=== PATIENT | female | born 1930 | race Caucasian/White ===

== ENCOUNTER 2018-06-26 18:13 | Inpatient (IN) | payer BC, MEDICARE ==
[~2018-06-26] VITALS: Ht 157.5 cm; Wt 59.9 kg
[~2018-06-26 18:13] MED LIST: ASPI-612 PO; ATEN25TA PO; CHOL10002 PO; COLC0.6T67 PO; ESTR10TA VG; LOSA1TAB36 PO; MIRA50TA PO; PITA1TAB PO
--- NOTE | 2018-06-26 18:29 | NUR ---
Unable to reconcile home medications as the pt is unable to provide any information about current meds at this time, per EMS pt's daughter is on her way to the ER with further information.
--- NOTE | 2018-06-26 18:40 | NUR ---
RECEIVED PT FROM HOME VIA AMBULANCE, PT DOESNT REMEMBER WHAT HAPPENED, INTIAL DGX SYNCOPE. PT UPON ARRIVAL CONNECTED TO VOLLEYBALL REFEREE, V/S TAKEN, 12 LEAD EKG DONE, IV LINE G20 INSERTED ON LT AC, CXRAY DONE, BLOOD SAMPLES TAKEN, URINE SAMPLE TAKEN. PT TAKEN TO CT SCAN.
[2018-06-26] MEDS ORDERED: ONDANSETRON 4 MG/2 ML VIAL IV ONE (18:45)
[2018-06-26] MEDS ORDERED: IV NORMAL SALINE 1000 ML BAG IV ONE (18:45)
[2018-06-26 19:05] LABS: BASOPHILS % (AUTO) 0.5 % (0.0-2.0); EOSINOPHILS # (AUTO) 0.1 K/uL (0.0-0.7); EOSINOPHILS % (AUTO) 1.1 % (0.0-7.0); HEMATOCRIT 41.8 % (31.2-41.9); HEMOGLOBIN 14.1 g/dL (10.9-14.3); LYMPHOCYTES # (AUTO) 0.8 K/uL (20.0-40.0); LYMPHOCYTES % (AUTO) 8.9 % (20.5-51.5); MEAN CORPUSCULAR HEMOGLOBIN 29.2 uug (24.7-32.8); MEAN CORPUSCULAR HGB CONC 34 g/dL (32.3-35.6); MEAN CORPUSCULAR VOLUME 86.6 fL (75.5-95.3); MONOCYTES # (AUTO) 0.4 K/uL (2.0-10.0); MONOCYTES % (AUTO) 4.7 % (0.0-11.0); NEUTROPHILS # (AUTO) 7.2 K/uL (1.8-8.9); NEUTROPHILS % (AUTO) 84.8 % (38.5-71.5); PLATELET COUNT (AUTO) 214 K/uL (179-408); RED BLOOD CELL COUNT(AUTO) 4.82 MIL/uL (3.63-4.92); WHITE BLOOD COUNT (AUTO) 8.4 K/uL (3.8-11.8)
[2018-06-26] MEDS ORDERED: ONDANSETRON 4 MG/2 ML VIAL ONE (19:05)
[2018-06-26 19:07] LABS: *BILIRUBIN,URIN NEGATIVE (NEGATIVE); *BLOOD, URINE NEGATIVE (NEGATIVE); *CLARITY,URINE CLEAR (CLEAR); *COLOR,URINE YELLOW (YELLOW); *KETONES,URINE NEGATIVE (NEGATIVE); *PROTEIN,URINE NEGATIVE (NEGATIVE); *UROBILINOGEN,URINE 0.2 E.U./dl (NORMAL); LEUKOCYTE ESTERASE ,URINE NEGATIVE (NEGATIVE); NITRITE, URINE NEGATIVE (NEGATIVE); PH,URINE 7.5 (5.0-8.0); UGLUCOSE NEGATIVE (NEGATIVE)
[2018-06-26 19:09] LABS: CARBON DIOXIDE 29 mmol/L (21-32); CHLORIDE 102 mmol/L (98-107); CREATININE 1.1 mg/dL (0.6-1.3); GLUCOSE 113 mg/dL (74-106); POTASSIUM 4.1 mmol/L (3.5-5.1); UREA NITROGEN, BLOOD 22 mg/dL (7-18)
[2018-06-26 19:12] LABS: SQUAMOUS EPITHELIAL CELL,UR FEW /HPF (NONE SEEN); WBC,URINE 0-3 /HPF (0-3)
[2018-06-26 19:14] LABS: ALANINE AMINOTRANSFERASE 30 U/L (14-59); ALKALINE PHOSPHATASE 61 U/L (50-136); ASPARTATE AMINOTRANSFERASE 20 U/L (15-37); BILIRUBIN,DIRECT 0.1 mg/dL (0.0-0.2); BILIRUBIN,TOTAL 0.6 mg/dL (0.2-1.0); TOTAL PROTEIN, SERUM 7.4 g/dL (6.4-8.2)
--- NOTE | 2018-06-26 19:15 | NUR ---
FULL REPORT GIVEN TO STEEL ERECTOR RN,RODOLFO
--- NOTE | 2018-06-26 19:22 | NUR ---
Pt. admitted to telemetry , under care of Joshua Raines NP. Belongs List completed
--- NOTE | 2018-06-26 19:25 | NUR ---
Admission Dx: NSTEMI/Syncope.
[2018-06-26] MEDS ORDERED: NITROGLYCERIN OINT 1 GM PACKET TP ONE ×2 (19:30→19:33)
[2018-06-26] MEDS ORDERED: ASPIRIN 81 MG TAB.CHEW PO ONE (19:30)
[2018-06-26] MEDS ORDERED: ASPIRIN 81 MG TAB.CHEW ONE (19:33)
--- NOTE | 2018-06-26 19:42 | NUR ---
Report given to Natty REYNA on Telemetry.
[2018-06-26] MEDS ORDERED: ACETAMINOPHEN 325 MG TABLET PO PRN (19:45)
[2018-06-26] MEDS ORDERED: MAGNESIUM HYDROXIDE 30 ML LIQUID UDC PO PRN (19:45)
[2018-06-26] MEDS ORDERED: Z GUARD REMEDY PASTE 57 GM TUBE TOP PRN (19:45)
[2018-06-26] MEDS ORDERED: TEMAZEPAM 15 MG CAPSULE PO PRN (19:45)
[2018-06-26] MEDS ORDERED: HYDROCODONE/APAP 5-325MG TABLET PO PRN (19:45)
[2018-06-26] MEDS ORDERED: ONDANSETRON 4 MG/2 ML VIAL IV PRN (19:45)
[2018-06-26] MEDS ORDERED: ENOXAPARIN SODIUM 40 MG/0.4 ML DISP.SYRIN SQ SCH (19:45)
[2018-06-26] MEDS ORDERED: LOSA25TA13 PO (19:45)
[2018-06-26] MEDS ORDERED: MORPHINE SULFATE 2 MG/1 ML DISP.SYRIN IV PRN (19:45)
--- NOTE | 2018-06-26 19:55 | NUR ---
Received pt in tele unit via darshan under care of BILLY Doran. Daughter, grandson and roommate at bedside. Pt AxO x 4. Tele monitor placed, noted to be SR with HR 76. BP 145/65. O2 sat 97% room air. Pt has no complaints of pain, dizziness or SOB at this time. Pertinent assessments and unit orientation done. Allergies noted. Discussed care plan with patient. Daughter states she will provide advance directive documents of patient to day shift. Safety precautions implemented. Bed alarm on and in locked position. Call light within reach. Will continue to monitor and carry out all orders.
[2018-06-26] MEDS ORDERED: NITROGLYCERIN 0.4 MG/TAB BOTTLE SL PRN (20:00)
[2018-06-26] MEDS: ATENOLOL 25 MG TABLET PO SCH (20:56)
[2018-06-26 20:59] VITALS: BP 155/80
[2018-06-26] MEDS ORDERED: ATORVASTATIN 10 MG TABLET PO SCH (21:00)
[2018-06-26] MEDS ORDERED: Medication Not On Formulary EA (Pitavastatin Calcium (Livalo) 1 MG) PO SCH (21:00)
[2018-06-26] MEDS ORDERED: ENOXAPARIN SODIUM 30 MG/0.3 ML DISP.SYRIN SUBCUT SCH (21:00)
[2018-06-26] MEDS: IV NS 1000 ML 1,000 ML IV PRN (21:00)
[2018-06-27 00:35] VITALS: BP 136/47
--- NOTE | 2018-06-27 00:53 | NUR ---
Critical lab value TROPONIN: 0.573. DR BURNETT made aware, no new orders. Will continue to monitor closely. Addendum: 06/27/18 at 0054 by MIA GO RN Amended: Links added.
[2018-06-27 06:18] VITALS: BP 116/43
--- NOTE | 2018-06-27 06:25 | NUR ---
Pt slept well during the night. Arousable with sound and touch during initial rounding. CPAP used for sleep apnea. Pt denies any pain, SOB or severe headache at this time. Carried out all orders. Will endorse continuity of care to day shift nurse.
[2018-06-27 06:40] LABS: BASOPHILS # (AUTO) 0.1 K/uL (0.0-8.0); BASOPHILS % (AUTO) 1.1 % (0.0-2.0); EOSINOPHILS # (AUTO) 0.1 K/uL (0.0-0.7); EOSINOPHILS % (AUTO) 2.4 % (0.0-7.0); HEMATOCRIT 34.1 % (31.2-41.9); HEMOGLOBIN 11.6 g/dL (10.9-14.3); LYMPHOCYTES % (AUTO) 17.8 % (20.5-51.5); MEAN CORPUSCULAR HEMOGLOBIN 29.6 uug (24.7-32.8); MEAN CORPUSCULAR HGB CONC 34 g/dL (32.3-35.6); MEAN CORPUSCULAR VOLUME 87.2 fL (75.5-95.3); MONOCYTES # (AUTO) 0.5 K/uL (2.0-10.0); MONOCYTES % (AUTO) 8.9 % (0.0-11.0); NEUTROPHILS # (AUTO) 3.8 K/uL (1.8-8.9); NEUTROPHILS % (AUTO) 69.8 % (38.5-71.5); PLATELET COUNT (AUTO) 190 K/uL (179-408); RED BLOOD CELL COUNT(AUTO) 3.91 MIL/uL (3.63-4.92); WHITE BLOOD COUNT (AUTO) 5.4 K/uL (3.8-11.8)
[2018-06-27 07:02] LABS: ALANINE AMINOTRANSFERASE 24 U/L (14-59); ALKALINE PHOSPHATASE 42 U/L (50-136); ASPARTATE AMINOTRANSFERASE 21 U/L (15-37); BILIRUBIN,TOTAL 0.7 mg/dL (0.2-1.0); CARBON DIOXIDE 28 mmol/L (21-32); CHLORIDE 107 mmol/L (98-107); CHOLESTEROL 143 mg/dL (<200); CREATININE 0.8 mg/dL (0.6-1.3); GLUCOSE 96 mg/dL (74-106); HDL CHOLESTEROL 48 mg/dL (40-60); MAGNESIUM 1.6 mg/dL (1.8-2.4); PHOSPHOROUS 3.4 mg/dL (2.5-4.9); POTASSIUM 3.6 mmol/L (3.5-5.1); TOTAL PROTEIN, SERUM 5.4 g/dL (6.4-8.2); TRIGLYCERIDES 104 MG/DL (30-150); UREA NITROGEN, BLOOD 22 mg/dL (7-18)
[2018-06-27] MEDS ORDERED: MAGNESIUM SULFATE 2 GM in IV DEXTROSE 5% 100 ML IV ONE (07:45)
--- NOTE | 2018-06-27 08:00 | NUR ---
AWAKE ALERT COOPERATE WELL UP IN CHAIR THIS AM NO DIZZINESS OR SOB OR PAIN CONTINUE IVF ON FALL PRECAUTION BED ALARM ON AND CALL LIGHT IN REACH
[2018-06-27] MEDS: ASPIRIN EC 81 MG TABLET.DR PO SCH (08:25)
[2018-06-27] MEDS: IV NS 1000 ML 1,000 ML IV PRN (08:25)
[2018-06-27] MEDS: CHOLECALCIFEROL 1,000 UNIT TABLET PO SCH (08:26)
[2018-06-27] MEDS: PANTOPRAZOLE SODIUM 40 MG VIAL IV SCH (08:27)
[2018-06-27] MEDS: MAGNESIUM SULFATE/D5W 100 ML IV SCH ×2 (08:36→10:02)
[2018-06-27] MEDS ORDERED: LOSARTAN POTASSIUM 25 MG TABLET PO SCH ×2 (09:00)
--- NOTE | 2018-06-27 09:00 | NUR ---
DR PECK SEE PATIENT AND LAB RESULT AND NEW ORDER IN CHART
[2018-06-27] MEDS ORDERED: LOSARTAN POTASSIUM 25 MG TABLET PO ONE (09:30)
[2018-06-27 09:48] LABS: IRON, SERUM 74 ug/dL (50-175)
--- NOTE | 2018-06-27 10:00 | NUR ---
DR PECK WAS INFORM OF TROP LAB RESULT NO NEW ORDER
[2018-06-27 10:01] LABS: FERRITIN 78 ng/mL (8-252)
[2018-06-27] MEDS: AMLODIPINE 5 MG TABLET PO SCH (10:03)
[2018-06-27 11:24] VITALS: BP 103/34
--- NOTE | 2018-06-27 12:00 | NUR ---
OOB UP IN CHAIR AND EAT LUNCH WELL FAMILY AT BEDSIDE
[2018-06-27 14:00] VITALS: BP_SYST 85; BP_SYST 92; BP_SYST 97; BP_DIAS 30; BP_DIAS 31; BP_DIAS 32
--- NOTE | 2018-06-27 14:00 | NUR ---
ORTHO STATIC BP CHECK ORDER AND RECORD PHYSICAL THERAPY SEEN PATIENT TODAY BUT BP STILL LOW AND PATIENT REFUSED TO EX /AMB AT THIS TIME
[2018-06-27 16:01] VITALS: BP 114/32
--- NOTE | 2018-06-27 17:30 | NUR ---
STABLE HEMODYNAMIC STATUS ,NO ACUTE DISTRESS NO DIZZINESS OR PAIN CONTINUE IVF AND SAFETY MEASURE PROVIDED CALL LIGHT IN REACH
--- NOTE | 2018-06-27 19:52 | NUR ---
Received pt sitting comfortably in chair. Daughter at bedside. Pt alert and oriented x4. Discussed and reviewed plan of care. Pt concerns of blood pressure noted. Pt has no complaints of dizziness, SOB or pain at this time. CPAP machine from home at bedside. Safety precautions implemented, non-skid socks on, call light within reach. Will continue to monitor closely and carry out all orders.
--- NOTE | 2018-06-27 19:53 | NUR ---
PT WAS COMPLAINING AND WAS REQUESTING TO USE HER PERSONAL CPAP MACHINE. RN PROCEDURE WAS CALLED AND APPROVED IT WAS OK FOR HOSPITAL USE. CHARGE NURSE AWARE AND CALLED FOR AN ORDER TO USE HER OWN CPAP.
[2018-06-27 20:00] VITALS: BP 124/43
[2018-06-27] MEDS: ATENOLOL 25 MG TABLET PO SCH (20:41)
[2018-06-27] MEDS ORDERED: LIVALO 1 MG PO SCH (21:00)
[2018-06-27] MEDS ORDERED: ENOXAPARIN SODIUM 40 MG/0.4 ML DISP.SYRIN SQ SCH (21:00)
[2018-06-28 00:28] VITALS: BP 130/46
--- NOTE | 2018-06-28 00:59 | NUR ---
PT SLEEPING USING HER PERSONAL CPAP MACHINE. NO SOB NOTED.
[2018-06-28 04:41] VITALS: BP 111/45
[2018-06-28 06:07] LABS: BASOPHILS # (AUTO) 0.1 K/uL (0.0-8.0); EOSINOPHILS # (AUTO) 0.3 K/uL (0.0-0.7); EOSINOPHILS % (AUTO) 5.6 % (0.0-7.0); HEMATOCRIT 33.6 % (31.2-41.9); HEMOGLOBIN 11.4 g/dL (10.9-14.3); LYMPHOCYTES # (AUTO) 1.2 K/uL (20.0-40.0); LYMPHOCYTES % (AUTO) 23.4 % (20.5-51.5); MEAN CORPUSCULAR HEMOGLOBIN 29.8 uug (24.7-32.8); MEAN CORPUSCULAR HGB CONC 34 g/dL (32.3-35.6); MEAN CORPUSCULAR VOLUME 87.7 fL (75.5-95.3); MONOCYTES # (AUTO) 0.5 K/uL (2.0-10.0); MONOCYTES % (AUTO) 9.6 % (0.0-11.0); NEUTROPHILS # (AUTO) 3.1 K/uL (1.8-8.9); NEUTROPHILS % (AUTO) 60.4 % (38.5-71.5); PLATELET COUNT (AUTO) 174 K/uL (179-408); RED BLOOD CELL COUNT(AUTO) 3.83 MIL/uL (3.63-4.92); WHITE BLOOD COUNT (AUTO) 5.1 K/uL (3.8-11.8)
[2018-06-28] MEDS: IV NS 1000 ML 1,000 ML IV PRN (06:14)
[2018-06-28 06:42] LABS: CARBON DIOXIDE 25 mmol/L (21-32); CHLORIDE 108 mmol/L (98-107); CREATININE 0.8 mg/dL (0.6-1.3); GLUCOSE 97 mg/dL (74-106); MAGNESIUM 1.9 mg/dL (1.8-2.4); POTASSIUM 3.7 mmol/L (3.5-5.1); UREA NITROGEN, BLOOD 17 mg/dL (7-18)
--- NOTE | 2018-06-28 06:51 | NUR ---
Pt slept well throughout the night with use of CPAP from home. Pt easily arousable with name call and touch. AxO x4. Tele SR-SB with HR 56-60. Continuous fluids NS running at 75 ml/hr during the night. Cooperative with care. Pt has no complaints of pain, severe headache, or SOB at this time. Assisted pt to the bathroom during initial rounds. Safety precautions maintained at all times. Will continue to monitor. Will endorse accordingly.
--- NOTE | 2018-06-28 08:00 | NUR ---
awake alert ortx4 cooperate well no sob or pain resting well with call light in reach
[2018-06-28] MEDS: PANTOPRAZOLE SODIUM 40 MG VIAL IV SCH (08:25)
[2018-06-28] MEDS: ASPIRIN EC 81 MG TABLET.DR PO SCH (08:25)
[2018-06-28] MEDS: AMLODIPINE 5 MG TABLET PO SCH (08:26)
[2018-06-28] MEDS: CHOLECALCIFEROL 1,000 UNIT TABLET PO SCH (08:26)
[2018-06-28] MEDS: LOSARTAN POTASSIUM 50 MG TABLET PO SCH ×2 (08:26→12:00)
[2018-06-28] MEDS ORDERED: LOSA50TA21 PO (09:53)
--- NOTE | 2018-06-28 10:00 | NUR ---
DR PECK SEEN PATIENT AND LAB RESULT TODAY STATE OK TO D/C HOME AND OUTSIDE COLLECTOR Nereyda ALEGRIA SEE PATIENT AND ORDER D/C HOME TO DAY AND CONTINUE HOMR MEDICATION PREVIUOS TAKEN ,TATE F/U WITH OWN PMD CALL FOR APPIONTMENT EDUCATION PK GIVE ,VERBALIZES UNDERSTAND AND SIGNS D/C SHEET ALL BELONGING WITH OWN MEDICINE FROM [facility] GIVEN HL WILL D/C PRIOR D/C HOME TODAY
[2018-06-28 11:26] VITALS: BP 151/45
[2018-06-28 12:00] VITALS: BP 151/56
--- NOTE | 2018-06-28 12:00 | NUR ---
REFUSED [facility] TO EXPLAINED ALL HOME MEDICATION STATE SHE KNOWN.
--- NOTE | 2018-06-28 12:30 | NUR ---
D/C HOME TO DAY ACCOMPANIES WITH FRIEND CONDITION STABLE
== END 2018-06-28 12:30 | disposition home or self-care (01) | DRG 280 ==
LOC: ER 18:16 → TELE 19:32 → MED 06-28 10:18
PROVIDERS: ADMIT Nurse Practitioner Acute Care; ATTEND Nurse Practitioner Acute Care
DX: I21.4 Non-ST elevation (NSTEMI) myocardial infarction (principal); N17.0 Acute kidney failure with tubular necrosis; E78.5 Hyperlipidemia, unspecified; Z96.641 Presence of right artificial hip joint; Z90.710 Acquired absence of both cervix and uterus; Z88.0 Allergy status to penicillin; Z88.2 Allergy status to sulfonamides; Z88.8 Allergy status to other drugs, medicaments and biological substances; E83.42 Hypomagnesemia; I73.9 Peripheral vascular disease, unspecified; Z95.820 Peripheral vascular angioplasty status with implants and grafts; G89.29 Other chronic pain; M54.9 Dorsalgia, unspecified; M47.816 Spondylosis without myelopathy or radiculopathy, lumbar region; M47.812 Spondylosis without myelopathy or radiculopathy, cervical region; I10 Essential (primary) hypertension; W18.11XA Fall from or off toilet without subsequent striking against object, initial encounter; Y93.E8 Activity, other personal hygiene; Y92.012 Bathroom of single-family (private) house as the place of occurrence of the external cause; R55 Syncope and collapse
CPT/HCPCS: 36415; 70030-TC; 70450; 71045; 72125; 72170; 83550; 83735; 84100; 85025; 85730; 93005; 93307; 93880; A4663; C9113; G0378; J1650; J2405; J3475; J7030